=== PATIENT | female | born 1980 | race Caucasian/White ===

== ENCOUNTER 2022-05-11 08:35 | Emergency (ER) | payer OTHER ==
[~2022-05-11] VITALS: Ht 154.9 cm; Wt 109.0 kg
[2022-05-11 12:17] VITALS: BP 128/75
== END 2022-05-11 12:18 | disposition home or self-care (01) ==
LOC: ER 08:35
DX: S40.011A Contusion of right shoulder, initial encounter (principal); S83.8X1A Sprain of other specified parts of right knee, initial encounter; F41.9 Anxiety disorder, unspecified; Y92.9 Unspecified place or not applicable; Y93.89 Activity, other specified; F32.9 Major depressive disorder, single episode, unspecified; M19.90 Unspecified osteoarthritis, unspecified site; W01.0XXA Fall on same level from slipping, tripping and stumbling without subsequent striking against object, initial encounter
CPT/HCPCS: 73030; 73560; 81025; 99284